=== PATIENT | male | born 1985 | race Caucasian/White ===

== ENCOUNTER 2018-09-09 08:40 | Emergency (ER) | payer OTHER ==
--- NOTE | 2018-09-09 09:32 | ED Physician Documentation ---
PD HPI BACK PAIN - Stated complaint Stated Complaint: BACK PX - Chief complaint Chief Complaint: Back Pain - History obtained from History obtained from: Patient, Family - History of Present Illness Timing - onset: How many weeks ago (2) Timing - duration: Weeks (2) Timing - details: Gradual onset, Still present Location: Lower, Right, Left Quality: Pain, Spasm, Sharp, Similar to prior episodes Associated symptoms: No: Fever, Weakness, Numbness, Incontinent of urine, Unable to urinate, Hematuria, Incontinent of stool Improves with: Rest, Position Worsened by: Movement Similar symptoms before: Diagnosis (back strain) Recently seen: Clinic - Additional information Additional information: 33-year-old [employer] [place] 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 He does state that he has been using a heating pack and laying on the floor and this helps while he has the heating pack in place but pain has persisted. He has had episodes similar over the to this previously usually resolving within the week. He states that he does not feel that the muscle relaxant has helped at all. He did get quite grouchy with Flexeril. He denies any numbness or tingling to the perineum denies any change in his bowel or bladder Review of Systems Constitutional: denies: Fever Eyes: denies: Photophobia Ears: denies: Ear pain Nose: denies: Congestion Throat: denies: Sore throat Cardiac: denies: Chest pain / pressure, Palpitations Respiratory: denies: Dyspnea, Cough GI: denies: Abdominal Pain, Nausea, Vomiting : denies: Dysuria Skin: denies: Rash Musculoskeletal: reports: Back pain, Extremity pain. denies: Neck pain Neurologic: denies: Generalized weakness, Focal weakness, Numbness PD PAST MEDICAL HISTORY - Past Medical History Past Medical History: Yes Musculoskeletal: Chronic back pain - Present Medications Home Medications: Ambulatory Orders Medication Instructions Recorded Confirmed Hydrocodone/Acetaminophen 1 - 2 each PO Q6H PRN #14 tablet 09/09/18 [Hydrocodon-Acetaminophen 5-325] - Allergies Allergies/Adverse Reactions: Allergies Allergy/AdvReac Type Severity Reaction Status Date / Time No Known Drug Allergies Allergy Verified 09/09/18 08:51 - Social History Does the pt smoke?: No Smoking Status: Never smoker PD ED PE NORMAL - Vitals Vital signs reviewed: Yes (hypertensive) - General General: Alert and oriented X 3, No acute distress, Well developed/nourished - HEENT HEENT: Atraumatic, PERRL, EOMI - Neck Neck: Supple, no meningeal sign - Respiratory Respiratory: No respiratory distress - Back Back: No CVA TTP, No spinal TTP, Other (There is paraspinous muscle tenderness to the lower lumbar spine bilaterally and radiating into the sciatic notch bilaterally ) - Derm Derm: Normal color, Warm and dry, No rash - Extremities Extremities: No deformity, No edema, Other (good dorsiflexion strength bilaterally ) - Neuro Neuro: Alert and oriented X 3, 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 I have encouraged him to discontinue the use of the heating pack and to use ice and stretch. We have given him dexamethasone here in the emergency department and I will write a prescription for some hydrocodone. Departure - Departure Disposition: 01 Home, Self Care Clinical Impression: Sciatica Qualifiers: Laterality: bilateral Qualified Code(s): M54.31 - Sciatica, right side; M54.32 - Sciatica, left side Instructions: ED Sciatica Follow-Up: MYRIAM Poe [Provider Group] Prescriptions: Hydrocodone/Acetaminophen [Hydrocodon-Acetaminophen 5-325] 1 - 2 each PO Q6H PRN #14 tablet PRN Reason: pain
[2018-09-09] MEDS ORDERED: CHERRY SYRUP 10 ML UDC PO ONE (09:34)
[2018-09-09] MEDS: DEXAMETHASONE 10 MG/ML VIAL PO STA (09:35)
[2018-09-09 09:58] VITALS: BP 119/73
== END 2018-09-09 09:58 | disposition home or self-care (01) ==
LOC: ED 08:40
DX: M54.31 Sciatica, right side (principal); M54.32 Sciatica, left side; G89.29 Other chronic pain
CPT/HCPCS: 99283

== ENCOUNTER 2018-09-27 08:18 | Outpatient (CLI) | payer OTHER ==
--- NOTE | 2018-09-27 13:30 | MRI Report ---
Reason: LOW BACK PAIN Procedure Date: 09/27/2018 Accession Number: [id number] / [id number] Procedure: MRI - Lumbar Spine W/O CPT Code: FULL RESULT: EXAM: MRI LUMBAR SPINE WITHOUT CONTRAST EXAM DATE: 09/27/2018 09:04 AM. CLINICAL HISTORY: 33-year-old man with low back pain. COMPARISON: None. TECHNIQUE: Multiplanar, multisequence T1-weighted and fluid-sensitive sequences of the lumbar spine from T12 to S1 without contrast. Other: None. FINDINGS: Spinal Canal: The conus terminates at L1-L2. The conus medullaris and cauda equina are unremarkable. Alignment: No scoliosis or spondylolisthesis. Bone Marrow: Five [id number] lumbar vertebral bodies are present. No gross fractures or bone lesions. No bone marrow edema. Disk Levels/Facets: T12-L1: Unremarkable. L1-L2: Unremarkable. L2-L3: Unremarkable. L3-L4: Unremarkable. L4-L5: There is disk desiccation and mild height loss. Broad-based central disk protrusion results in mild narrowing of the central canal. Disk in the subarticular spaces and mild facet hypertrophy result in mild to moderate narrowing of the neural foramina bilaterally. L5-S1: Unremarkable. Musculature: Normal. No edema or fatty atrophy. Other: The partially visualized retroperitoneum is unremarkable. IMPRESSION: 1. L4-L5: Degenerative disk changes with central disk protrusion. Mild narrowing of the central canal and mild to moderate narrowing of the neural foramina bilaterally. Comment: The following findings are so common in adults without low back pain that while we report their presence, they must be interpreted with caution and in the context of the clinical situation. (Reference Faustovik et al, Spine 2001) Prevalence of findings in patients without low back pain: Disk degeneration (any evidence): 92% Disk desiccation/T2 signal loss: 83% Disk height loss: 56% Disk bulge: 64% Disk protrusion: 32% Annular tear/high intensity zone: 38% RADIA
== END 2018-09-27 08:19 | disposition home or self-care (01) ==
LOC: DI 08:18
PROVIDERS: ATTEND Student in an Organized Health Care Education/Training Program
DX: M51.26 Other intervertebral disc displacement, lumbar region (principal); M51.36 Other intervertebral disc degeneration, lumbar region; M48.061 Spinal stenosis, lumbar region without neurogenic claudication
CPT/HCPCS: 72148